=== PATIENT | male | born 1975 | race Caucasian/White ===

== ENCOUNTER 2017-09-21 12:23 | Emergency (ER) | payer BC ==
[2017-09-21] MEDS ORDERED: Ketorolac 60 MG/2 ML SDV IM ONE (13:03)
--- NOTE | 2017-09-21 13:06 | EDM.PDOC ---
ED HPI GENERAL MEDICAL PROBLEM - General Chief Complaint: Chest Pain Stated Complaint: RIB PAIN Time Seen by Provider: 09/21/17 13:04 Source of Information: Reports: Patient History Limitations: Reports: No Limitations - History of Present Illness INITIAL COMMENTS - FREE TEXT/NARRATIVE: 42-year-old male presents for evaluation treatment of left anterior chest pain. Patient reports that he was performing a bear hug maneuver on a foster child last night in attempt to calm the child down. The child struggled. He reports afterwards he noticed pain to the left anterior chest that radiates to his left lateral chest. Hurts to take a deep breath. Reports some dizziness and lightheadedness. Patient also reports worsening pain to his left shoulder. He recently had an MRI done of his back and his left shoulder. He was referred to orthopedics for further management of his left shoulder pain. Left Chest Pain Score (Numeric/FACES): 7 - Related Data Allergies Allergy/AdvReac Type Severity Reaction Status Date / Time Penicillins Allergy Itching Verified 09/21/17 12:35 codeine AdvReac Nausea Verified 09/21/17 12:35 hydrocodone AdvReac Nausea Verified 09/21/17 12:35 anesthesia AdvReac Vomiting Uncoded 06/26/14 11:24 Home Meds: Home Meds Orphenadrine [Norflex] 100 mg PO BID PRN #20 tab.er 09/21/17 [Rx] Past Medical History HEENT History: Reports: None Gastrointestinal History: Reports: GI Bleed Other Gastrointestinal History: currently hospitalized for a GI bleed Musculoskeletal History: Reports: Back Pain, Chronic Neurological History: Reports: Migraines Hematologic History: Reports: Blood Transfusion(s), Transfusion Reaction Dermatologic History: Reports: Eczema Other Dermatologic History: scalp; uses head and shoulders shampoo - Past Surgical History HEENT Surgical History: Reports: Naso-Sinus Surgery, Tonsillectomy Neurological Surgical History: Reports: Other (See Below) Musculoskeletal Surgical History: Reports: Other (See Below) Social & Family History - Family History HEENT: Reports: Glaucoma Cardiac: Reports: Hypertension, [place], Stent Respiratory: Reports: Sleep Apnea Musculoskeletal: Reports: Arthritis Neurological: Reports: Alzheimers Disease Psychiatric: Reports: PTSD Endocrine/Metabolic: Reports: Diabetes, Type I Dermatologic: Reports: Eczema Other Oncologic Family History: unsure of paternal grandfather's type of cancer - Tobacco Use Smoking Status *Q: Never Smoker - Caffeine Use Caffeine Use: Reports: Soda - Recreational Drug Use Recreational Drug Use: No - Living Situation & Occupation Living situation: Reports: Occupation: Employed ED ROS GENERAL - Review of Systems Review Of Systems: See Below Respiratory: Denies: Shortness of Breath Cardiovascular: Reports: Chest Pain (left anterior chest) Neurological: Reports: Dizziness ED EXAM, GENERAL - Physical Exam Exam: See Below Exam Limited By: No Limitations General Appearance: Alert, WD/WN, No Apparent Distress Nose: Normal Inspection Throat/Mouth: Normal Inspection, Normal Voice, No Airway Compromise Respiratory/Chest: No Respiratory Distress, Lungs Clear, Normal Breath Sounds, Other (identifies pain to the left anterior chest ribs 4-6 radiating to the left lateral chest ) Cardiovascular: Normal Peripheral Pulses, Regular Rate, Rhythm, No Murmur Neurological: Alert, Oriented, Normal Cognition Psychiatric: Normal Affect, Normal Mood Skin Exam: Warm, Dry, Normal Color Course - Vital Signs Last Recorded V/S: Last Vital Signs Temp 98.6 F 09/21/17 14:15 Pulse 82 09/21/17 14:15 Resp 16 09/21/17 14:15 BP 106/68 09/21/17 14:15 Pulse Ox 93 L 09/21/17 14:15 - Orders/Labs/Meds Orders: Active Orders 24 hr Category Date Time Status Ribs 2V w Chest Lt [CR] Stat Exams 09/21/17 13:04 Ordered Meds: Medications Discontinued Medications Generic Name Dose Route Start Last Admin Trade Name [place] PRN Reason Stop Dose Admin Ketorolac Tromethamine 60 mg 09/21/17 13:03 09/21/17 13:24 Toradol IM 09/21/17 13:04 60 mg ONETIME ONE Administration - Radiology Interpretation Free Text/Narrative:: X-ray of the chest with left rib series shows no acute fractures or dislocations reviewed by myself and Dr. Powell. - Re-Assessments/Exams Free Text/Narrative Re-Assessment/Exam: 09/21/17 14:00 I reviewed the x-ray results the patient. We will try him on some Norflex. I will have him follow-up with his primary care provider. Discharge instructions as documented. 0 Departure - Departure Time of Disposition: 14:01 Disposition: Home, Self-Care 01 Condition: Fair Clinical Impression: Acute chest wall pain - Discharge Information Prescriptions: Orphenadrine [Norflex] 100 mg PO BID PRN #20 tab.er PRN Reason: Muscle Spasm Instructions: Chest Wall Pain, [id number] Referrals: Romina Flores NP [Primary Care Provider] - Forms: ED Department Discharge Additional Instructions: Recommend using [id number] Tylenol or Motrin as needed for pain relief. You may use Norflex 1 tab twice a day as needed for muscle pain and spasm. do not recommend driving or operating machinery until you know how Norflex affects you as it can be sedating. Also recommended using heat or ice for additional pain relief. Follow-up with your primary care provider within 2 weeks for recheck of your symptoms. Please return to the ER if your symptoms change or worsen. - My Orders Last 24 Hours: My Active Orders 09/21/17 13:04 Ribs 2V w Chest Lt [CR] Stat - Assessment/Plan Last 24 Hours: My Active Orders 09/21/17 13:04 Ribs 2V w Chest Lt [CR] Stat
[2017-09-21 14:19] VITALS: BP 106/68
--- NOTE | 2017-09-23 10:03 | CR ---
Chest and left ribs: Frontal view of the chest is obtained as well as four views of the left ribs. Comparison: No prior chest imaging. Heart size and mediastinum are normal. Minimal atelectasis off the left cardiac apex is seen. Lungs otherwise are clear. No discrete fracture or other left sided rib abnormality is appreciated. Impression: 1. No discrete left-sided rib abnormality. Nondisplaced fracture could be missed. 2. Minimal atelectasis. Nothing acute is seen on accompanying chest x-ray. Diagnostic code #2
== END 2017-09-21 14:15 | disposition home or self-care (01) ==
LOC: JD.ED 12:23
DX: R07.89 Other chest pain (principal); Z88.0 Allergy status to penicillin; Z88.5 Allergy status to narcotic agent; Z88.4 Allergy status to anesthetic agent
CPT/HCPCS: 71101; 96372; 99284; J1885

== ENCOUNTER 2019-03-02 15:36 | Emergency (ER) | payer SELFPAY ==
[2019-03-02 15:41] VITALS: PULSE 99
[2019-03-02] MEDS ORDERED: Sodium Chloride 0.9% 10 ML Syringe FLUSH PRN (15:57)
[2019-03-02] MEDS ORDERED: Aspirin 81 MG Tab.Chew PO ONE (15:58)
[2019-03-02] MEDS ORDERED: Nitroglycerin 2% Oint 1 GM UD Packet TOP ONE (15:58)
[2019-03-02] MEDS ORDERED: LORazepam 2 MG/ML SDV IVPUSH ONE (15:58)
--- NOTE | 2019-03-02 16:10 | EDM.PDOC ---
ED HPI GENERAL MEDICAL PROBLEM - General Chief Complaint: Chest Pain Stated Complaint: [facility] Time Seen by Provider: 03/02/19 15:39 Source of Information: Reports: Patient, RN Notes Reviewed - History of Present Illness INITIAL COMMENTS - FREE TEXT/NARRATIVE: 43-year-old male comes in with chest pain. He started having mild pressure and tightness anterior chest several hours ago. That has been worsening over the past 2-3 hours. There is no radiation of pain. He also has been feeling weak, lightheaded and dizzy today. He has also had some blurred vision. He states he does have slight discomfort with deep breathing. No cough fever or chills. Denies history of known coronary artery disease hypertension or diabetes. He does not smoke. There is family history for heart disease. Chest Pain Score (Numeric/FACES): 2 - Related Data Allergies Allergy/AdvReac Type Severity Reaction Status Date / Time Penicillins Allergy Itching Verified 09/21/17 12:35 codeine AdvReac Nausea Verified 09/21/17 12:35 hydrocodone AdvReac Nausea Verified 09/21/17 12:35 anesthesia AdvReac Vomiting Uncoded 06/26/14 11:24 Home Meds: Home Meds Orphenadrine [Norflex] 100 mg PO BID PRN #20 tab.er 09/21/17 [Rx] Past Medical History HEENT History: Reports: None Gastrointestinal History: Reports: GI Bleed Other Gastrointestinal History: currently hospitalized for a GI bleed Musculoskeletal History: Reports: Back Pain, Chronic Neurological History: Reports: Migraines Hematologic History: Reports: Blood Transfusion(s), Transfusion Reaction Dermatologic History: Reports: Eczema Other Dermatologic History: scalp; uses head and shoulders shampoo - Past Surgical History HEENT Surgical History: Reports: Naso-Sinus Surgery, Tonsillectomy Neurological Surgical History: Reports: Other (See Below) Musculoskeletal Surgical History: Reports: Other (See Below) Social & Family History - Family History HEENT: Reports: Glaucoma Cardiac: Reports: Hypertension, [place], Stent Respiratory: Reports: Sleep Apnea Musculoskeletal: Reports: Arthritis Neurological: Reports: Alzheimers Disease Psychiatric: Reports: PTSD Endocrine/Metabolic: Reports: Diabetes, Type I Dermatologic: Reports: Eczema Other Oncologic Family History: unsure of paternal grandfather's type of cancer - Tobacco Use Smoking Status *Q: Never Smoker Second Hand Smoke Exposure: No - Caffeine Use Caffeine Use: Reports: Soda - Living Situation & Occupation Living situation: Reports: Occupation: Employed ED ROS GENERAL - Review of Systems Review Of Systems: See Below Constitutional: Denies: Fever, Chills, Diaphoresis HEENT: Reports: No Symptoms Respiratory: Reports: Shortness of Breath, Pleuritic Chest Pain. Denies: Cough (Slight) Cardiovascular: Reports: Chest Pain (Heaviness and tightness anterior chest) GI/Abdominal: Denies: Abdominal Pain, Nausea, Vomiting Musculoskeletal: Denies: Neck Pain, Shoulder Pain, Arm Pain, Back Pain Skin: Reports: No Symptoms Neurological: Reports: Dizziness ED EXAM, GENERAL - Physical Exam Exam: See Below General Appearance: Alert, Anxious Eye Exam: Bilateral Eye: PERRL Throat/Mouth: Normal Inspection Head: Atraumatic, Other Respiratory/Chest: No Respiratory Distress, Lungs Clear, Normal Breath Sounds, Chest Non-Tender Cardiovascular: Regular Rate, Rhythm GI/Abdominal: Soft, Non-Tender Back Exam: No: CVA Tenderness (L), CVA Tenderness (R) Extremities: Normal Inspection. No: Pedal Edema, Leg Pain, Redness Neurological: Alert, Oriented, No Motor/Sensory Deficits Skin Exam: Warm, Dry, Normal Color EKG INTERPRETATION EKG Date: 03/02/19 [place]: Normal P-Wave: Present QRS: Other (small q waves lead III) ST-T: Other (partially inverted t waves V2 and V3) Course - Vital Signs Last Recorded V/S: Last Vital Signs Temp 98.2 F 03/02/19 15:37 Pulse 99 03/02/19 15:37 Resp 16 03/02/19 15:37 BP 132/86 03/02/19 15:37 Pulse Ox 95 03/02/19 15:37 - Orders/Labs/Meds Orders: Active Orders 24 hr Category Date Time Status EKG 12 Lead [EKG Documentation Completion] [RC] STAT Care 03/02/19 15:37 Active EKG 12 Lead [EKG Documentation Completion] [RC] STAT Care 03/02/19 15:57 Inactive Peripheral IV Care [RC] . DIRECTED Care 03/02/19 15:57 Active Sodium Chloride 0.9% [Saline Flush] Med 03/02/19 15:57 Active 10 ml FLUSH ASDIRECTED PRN Peripheral IV Insertion Adult [OM.PC] Stat Oth 03/02/19 15:57 Ordered Medication Orders Sodium Chloride (Saline Flush) 10 ml FLUSH ASDIRECTED PRN PRN Reason: Keep Vein Open Last Admin: 03/02/19 16:06 Dose: 10 ml Labs: Laboratory Tests 03/02/19 03/02/19 03/02/19 Range/Units 15:50 15:50 16:47 WBC 9.71 H (4.23-9.07) K/mm3 RBC 5.30 (4.63-6.08) M/mm3 Hgb 16.3 (13.7-17.5) gm/dl Hct 47.1 (40.1-51.0) % MCV 88.9 (79.0-92.2) fl MCH 30.8 (25.7-32.2) pg MCHC 34.6 (32.2-35.5) g/dl RDW Std Deviation 42.9 (35.1-43.9) fL Plt Count 242 (163-337) K/mm3 MPV 9.7 (9.4-12.3) fl Neut % (Auto) 63.9 (34.0-67.9) % Lymph % (Auto) 25.0 (21.8-53.1) % [place] % (Auto) 8.8 (5.3-12.2) % Eos % (Auto) 2.0 (0.8-7.0) Baso % (Auto) 0.3 (0.1-1.2) % Neut # (Auto) 6.21 H (1.78-5.38) K/mm3 Lymph # (Auto) 2.43 (1.32-3.57) K/mm3 [place] # (Auto) 0.85 H (0.30-0.82) K/mm3 Eos # (Auto) 0.19 (0.04-0.54) K/mm3 Baso # (Auto) 0.03 (0.01-0.08) K/mm3 D-Dimer, Quantitative 0.24 (0.19-0.50) mg/L Sodium 142 (136-145) mEq/L Potassium 3.9 (3.5-5.1) mEq/L Chloride 105 (98-107) mEq/L Carbon Dioxide 26 (21-32) mEq/L Anion Gap 14.9 (5-15) BUN 12 (7-18) mg/dL Creatinine 1.0 (0.7-1.3) mg/dL Est Cr Clr Drug Dosing 99.36 mL/min Estimated GFR (MDRD) > 60 (>60) mL/min BUN/Creatinine Ratio 12.0 L (14-18) Glucose 87 (74-106) mg/dL Calcium 8.8 (8.5-10.1) mg/dL Total Bilirubin 0.5 (0.2-1.0) mg/dL AST 48 H (15-37) U/L ALT 53 (16-63) U/L Alkaline Phosphatase 77 (46-116) U/L Troponin I < 0.017 (0.00-0.056) ng/mL Total Protein 7.6 (6.4-8.2) g/dl Albumin 4.1 (3.4-5.0) g/dl Globulin 3.5 gm/dL Albumin/Globulin Ratio 1.2 (1-2) 03/02/19 Range/Units 18:32 WBC (4.23-9.07) K/mm3 RBC (4.63-6.08) M/mm3 Hgb (13.7-17.5) gm/dl Hct (40.1-51.0) % MCV (79.0-92.2) fl MCH (25.7-32.2) pg MCHC (32.2-35.5) g/dl RDW Std Deviation (35.1-43.9) fL Plt Count (163-337) K/mm3 MPV (9.4-12.3) fl Neut % (Auto) (34.0-67.9) % Lymph % (Auto) (21.8-53.1) % [place] % (Auto) (5.3-12.2) % Eos % (Auto) (0.8-7.0) Baso % (Auto) (0.1-1.2) % Neut # (Auto) (1.78-5.38) K/mm3 Lymph # (Auto) (1.32-3.57) K/mm3 [place] # (Auto) (0.30-0.82) K/mm3 Eos # (Auto) (0.04-0.54) K/mm3 Baso # (Auto) (0.01-0.08) K/mm3 D-Dimer, Quantitative (0.19-0.50) mg/L Sodium (136-145) mEq/L Potassium (3.5-5.1) mEq/L Chloride (98-107) mEq/L Carbon Dioxide (21-32) mEq/L Anion Gap (5-15) BUN (7-18) mg/dL Creatinine (0.7-1.3) mg/dL Est Cr Clr Drug Dosing mL/min Estimated GFR (MDRD) (>60) mL/min BUN/Creatinine Ratio (14-18) Glucose (74-106) mg/dL Calcium (8.5-10.1) mg/dL Total Bilirubin (0.2-1.0) mg/dL AST (15-37) U/L ALT (16-63) U/L Alkaline Phosphatase (46-116) U/L Troponin I < 0.017 (0.00-0.056) ng/mL Total Protein (6.4-8.2) g/dl Albumin (3.4-5.0) g/dl Globulin gm/dL Albumin/Globulin Ratio (1-2) Meds: Medications Generic Name Dose Route Start Last Admin Trade Name Freq PRN Reason Stop Dose Admin Sodium Chloride 10 ml 03/02/19 15:57 03/02/19 16:06 Saline Flush FLUSH 10 ml ASDIRECTED PRN Administration Keep Vein Open Discontinued Medications Generic Name Dose Route Start Last Admin Trade Name Freq PRN Reason Stop Dose Admin Aspirin 162 mg 03/02/19 15:58 03/02/19 16:05 Aspirin PO 03/02/19 15:59 162 mg ONETIME ONE Administration Lorazepam 1 mg 03/02/19 15:58 03/02/19 16:08 Ativan IVPUSH 03/02/19 15:59 1 mg ONETIME ONE Administration Nitroglycerin 1 gm 03/02/19 15:58 03/02/19 16:06 Nitro-Bid 2% TOP 03/02/19 15:59 1 gm ONETIME ONE Administration - Re-Assessments/Exams Free Text/Narrative Re-Assessment/Exam: 03/02/19 17:54 Chest x-ray normal, EKG does not show acute changes. Initial troponin did come back negative a while ago. Planning to wait and do a 2-1/2 hour troponin in follow-up. He continues in sinus rhythm. Have given aspirin by mouth and also we do have 1 inch of Nitropaste on. Patient was very anxious at time of initial eval and we did give 1 mg Ativan IV as well. Sting more comfortably now but states she still does have some anterior chest "pressure type discomfort". Departure - Departure Time of Disposition: 19:18 Disposition: Home, Self-Care 01 Condition: Fair Clinical Impression: Atypical chest pain Referrals: PCP,Unknown [Primary Care Provider] - Forms: ED Department Discharge Additional Instructions: Drink plenty of water to maintain hydration, try reduce caffeine intake, try eat a healthy diet, consider regular exercise program. Will clinic with Dr Bismark Jeong or one of our other clinic providers for a complete physical, further medical care as needed. Return to ED as needed if symptoms worsening in any way. Sepsis Event Note - Evaluation Sepsis Screening Result: No Definite Risk - Focused Exam Vital Signs: Vital Signs Temp Pulse Resp BP Pulse Ox 03/02/19 15:37 98.2 F 99 16 132/86 95 Date Exam was Performed: 03/02/19 Time Exam was Performed: 19:18 - My Orders Last 24 Hours: My Active Orders 03/02/19 15:37 EKG 12 Lead [EKG Documentation Completion] [RC] STAT 03/02/19 15:57 EKG 12 Lead [EKG Documentation Completion] [RC] STAT Peripheral IV Care [RC] . DIRECTED Sodium Chloride 0.9% [Saline Flush] 10 ml FLUSH ASDIRECTED PRN Peripheral IV Insertion Adult [OM.PC] Stat - Assessment/Plan Last 24 Hours: My Active Orders 03/02/19 15:37 EKG 12 Lead [EKG Documentation Completion] [RC] STAT 03/02/19 15:57 EKG 12 Lead [EKG Documentation Completion] [RC] STAT Peripheral IV Care [RC] . DIRECTED Sodium Chloride 0.9% [Saline Flush] 10 ml FLUSH ASDIRECTED PRN Peripheral IV Insertion Adult [OM.PC] Stat
--- NOTE | 2019-03-02 16:28 | CR ---
Chest: Portable view of the chest was obtained. Comparison: Prior chest x-ray of 09/21/17. Heart size and mediastinum are normal. Lungs are clear. Bony structures are grossly intact. Impression: 1. Nothing acute is seen on portable chest x-ray. Diagnostic code #1 This report was dictated in [place] Standard Time
[2019-03-02 19:33] VITALS: BP 114/80
== END 2019-03-02 19:28 | disposition home or self-care (01) ==
LOC: JD.ED 15:36
DX: R07.89 Other chest pain (principal); Z88.0 Allergy status to penicillin; Z88.4 Allergy status to anesthetic agent; Z88.5 Allergy status to narcotic agent
CPT/HCPCS: 36415; 71045; 80053; 84484; 85025; 85379; 93005; 96374; 99285; A9270; J2060; 93010; 99284